=== PATIENT | female | born 1985 | race Caucasian/White ===

== ENCOUNTER 2018-12-06 13:55 | Outpatient (CLI) | payer MEDICAID ==
[~2018-12-06] VITALS: Ht 154.9 cm; Wt 76.1 kg
[~2018-12-06 13:55] MED LIST: PREN1TAB62 PO
[2018-12-06 14:17] VITALS: BP 124/60; PULSE 93; RESP 20; Ht 154.9 cm; Wt 76.1 kg
--- NOTE | 2019-01-09 14:24 | PN ---
Triage Information Date/Time Reason for visit: Uterine contractions Weeks of Gestation 37 weeks /Para Diabetes: none Hypertention: none Objective Heart Rate: 140's Results/Medications Imaging Results FINDINGS: There is a single live intrauterine gestation. Cardiac activity is present with 124 beats per minute. There is a vertex presentation. The placenta is anterior. There is no evidence of placental abruption. There is a normal amount of amniotic fluid with an BHAVYA = 12.5 cm. Biophysical profile: movement 2/2 tone 2/2. breathing 2/2 BHAVYA 2/2 Total 05/19 RPTAT: AA . IMPRESSION: Normal biophysical profile. . Disposition: Discharge Assessment/Plan 33 years old with single intrauterine at 37 weeks complaining of uterine contractions. She states good movement. She denies nausea, vomiting, shortness of breath, chest pain, headache, visual changes, vaginal bleeding or LOF. Her exam was unremarkable.SVE 1/thick/high/cephalic/intact membrane. Repeat exam in 2 hours with no cervical changes. Ultrasound performed as noted above -FHR: No sign of metabolic acidosis- Category I -Symptoms and sign of labor, preeclampsia, kick count discussed with patient, she voiced understanding. All of her questions answered. -Patient was discharged home in stable condition with the appropriate discharge instructions provided. I would like patient to have close follow-up with her primary physician or outpatient clinic in 1-2 days or return to triage for worsening symptoms or any other urgent concerns. AIYANA MOE Jan 09, 2019 14:24
== END 2018-12-06 18:30 | disposition home or self-care (01) ==
LOC: L-D 13:55 → OBT 13:55
PROVIDERS: ATTEND Obstetrics & Gynecology
DX: O62.9 Abnormality of forces of labor, unspecified (principal); Z3A.37 37 weeks gestation of pregnancy
CPT/HCPCS: 76818; 81003; Z7500; G0463

== ENCOUNTER 2018-12-25 12:02 | Inpatient (IN) | payer MEDICAID ==
[~2018-12-25] VITALS: Ht 160 cm; Wt 76.7 kg
[2018-12-25 12:11] VITALS: Ht 160 cm; Wt 76.7 kg
[2018-12-25 12:12] VITALS: BP 119/71; PULSE 82; RESP 18
--- NOTE | 2018-12-25 14:46 | HP ---
Date/Time of Note Date/Time of Note DATE: 12/25/18 TIME: 14:38 OB - History Hx of Present Free Text/Dictation 12/25/2018 Estimated Due Date: Dec 25, 2018 : 6 Para: 3 Spontaneous : 2 Care: Good Care Other Concerns: 33 years old female with care with Dr. Cartagena at [facility] presented for NST/ BPP due to post date. She was about 3 cm dilated in the office, per patient. Patient denies any LOf, vaginal bleeding, decreased movement. Desires to undergo labor augmentation. Past Family/Social History * Past Medical, Surgical, Family and Obstetric Histories reviewed from chart. Blood Type: O+ Rubella: immune RPR/VDRL: Negative GBS Status: Negative HBsAG: Negative OB Admission Exam Vital Signs Vital Signs Vital Signs Date Temp Pulse Resp B/P (MAP) Pulse Ox O2 O2 Flow FiO2 Time Delivery Rate 12/25/18 98.4 82 18 119/71 Room Air 12:12 (87) Physical Exam HEENT: WNL Lungs: Clear Abdomen: WNL Reflexes: Normal Cervical Dilatation: 2cm Effacement: 50% Station: -1 Membranes: Intact Accelerations: Accelerations Present Varibility: Moderate Intensity: Mild OB Assessment/Plan Other Assessment: IUP at 40 weeks Post date Desires to be induced after discussion about the risks and benefits of expectant management with testing twice a week until 40 weeks and 6 days GBS negative Admit to L&D for induction anticipate WOODY MUNGUIA MD Dec 25, 2018 14:46
[2018-12-25] MEDS: LACTATED RINGER'S 1,000 ML IV SCH ×2 (14:51→22:12)
[2018-12-25] MEDS ORDERED: CARBOPROST 250 MCG INJ IM PRN (15:00)
[2018-12-25] MEDS ORDERED: LIDOCAINE 1% (MPF) 30 ML INJ INJ PRN (15:00)
[2018-12-25] MEDS ORDERED: MISOPROSTOL 200 MCG TAB PR PRN (15:00)
[2018-12-25] MEDS ORDERED: OXYTOCIN 30 UNITS/LR 500 ML IV SCH ×3 (15:00)
[2018-12-25] MEDS ORDERED: OXYTOCIN 30 UNITS/LR 500 ML IV PRN (15:00)
[2018-12-25] MEDS ORDERED: METHYLERGONOVINE 0.2 MG INJ IM PRN (15:00)
[2018-12-26] VITALS (7 sets, daily range): BP systolic 103–123; BP diastolic 51–68; PULSE 69–78; RESP 16–19
--- NOTE | 2018-12-26 00:13 | QN ---
Documentation Comment 33-year-old with single intrauterine at 40 weeks admitted in labor. She states good movement. She denies nausea, vomiting, shortness of breath, chest pain, headache, visual changes, vaginal bleeding or LOF. Physical exam: Afebrile, vital signs stable heart rate category 1 Uterine contraction every 3-5 minutes SVE: 3/80/-2/cephalic/AROM done, clear Blood type O+/rubella immune/GBS negative Admission, procedures, expectations, risks and possible complications have been discussed in detail with the patient. Risk of vaginal delivery including but not limited to bleeding, infection, cervical laceration, placental retention, injury to fetus, blood transfusion, blood transfusion related infection, risk of anesthesia, adhesion, cervical laceration, episiotomy/laceration, possible delivery with risk of bleeding, infection, injury to other organs (bowel, bladder, ureter, vessels, nerves), injury to fetus, blood transfusion, blood transfusion related infection, risk of anesthesia, scar and hernia formation, needs for future , removal of uterus or any other indicated surgery discussed with the patient. She expressed understanding and repeats the risks. All of her questions were answered. She signed the informed consent. PHYSICIAN'S VERIFICATION OF INFORMED CONSENT The patient and her counseled regarding the procedure, its indications, risks, potential complications and alternatives and any questions were answered. Consent was obtained. PLANNED PROCEDURE/TREATMENT: Vaginal delivery, episiotomy, repair of laceration possible delivery AIYANA MOE Dec 26, 2018 00:13
--- NOTE | 2018-12-26 00:15 | LDN ---
Date/Time of Note Date/Time of Note DATE: 12/26/18 TIME: 00:13 Delivery Summary 33-year-old with single intrauterine at 40 weeks delivered a viable female over intact perineum. Nose and mouth suctioned. Rest of body delivered. Cord clamped and cut after stopping pulsation. Baby given to the nurse. Placenta delivered intact and spontaneously with three-vessel cord. Patient tolerated procedure well. Time of delivery 23:39 Weight 7 pounds 9 ounces 8 at 1 minutes and 9 at 5 minutes EBL 150 mL Weeks of Gestation 40 weeks Placenta Delivered: Spontaneously Meconium: none Episiotomy: No Estimated blood loss: 150 Sponge & Needle done & correct: Yes All needle counts correct: Yes Any foreign bodies felt in the: No Delivery Information Sex Infant Sex: female Apgars 1 Minute: 8 5 Minute: 9 10 Minute: 10 Suctioning Nose & mouth suctioned at rachel: Yes Umbilical Cord Umbilical cord with: 3 Vessels Cord presentations: no nuchal cord Cord Blood was obtained: Yes Mother & Baby Disposition Disposition Mom & Baby to Maternity; Good: Yes AIYANA MOE Dec 26, 2018 00:15
[2018-12-26] MEDS ORDERED: LACTATED RINGER'S 1,000 ML IV* SCH (02:16)
[2018-12-26] MEDS ORDERED: DEXTROSE 5%-LR 1,000 ML IV SCH (02:16)
[2018-12-26] MEDS ORDERED: DIBUCAINE 1% 30 GM OINT TOP PRN (02:30)
[2018-12-26] MEDS ORDERED: WITCH HAZEL/GLYCERIN PAD PR PRN (02:30)
[2018-12-26] MEDS ORDERED: LANOLIN HPA 1 PKT TOP PRN (02:30)
[2018-12-26] MEDS ORDERED: MISOPROSTOL 200 MCG TAB PR PRN (02:30)
[2018-12-26] MEDS ORDERED: METHYLERGONOVINE 0.2 MG INJ IM PRN (02:30)
[2018-12-26] MEDS ORDERED: OXYTOCIN 30 UNITS/LR 500 ML IV PRN (02:30)
[2018-12-26] MEDS ORDERED: ONDANSETRON 4 MG INJ IV PRN (02:30)
[2018-12-26] MEDS ORDERED: ACETAMINOPHEN 325 MG TAB PO PRN (02:30)
[2018-12-26] MEDS ORDERED: DIPHENHYDRAMINE 50 MG INJ IV PRN (02:30)
[2018-12-26] MEDS ORDERED: BENZOCAINE 20% 56 ML SPRAY TOP PRN (02:30)
[2018-12-26] MEDS ORDERED: SENNA/DOCUSATE NA (8.6MG/50MG) TAB PO PRN (02:30)
[2018-12-26] MEDS ORDERED: OXYCODONE/ASPIRIN (4.88/325) TAB PO PRN (02:30)
[2018-12-26] MEDS ORDERED: ZOLPIDEM 5 MG TAB PO PRN (02:30)
[2018-12-26] MEDS ORDERED: CARBOPROST 250 MCG INJ IM PRN (02:30)
[2018-12-26] MEDS: IBUPROFEN 600 MG TAB PO SCH ×3 (06:02→17:55)
--- NOTE | 2018-12-26 12:32 | PN ---
Date/Time of Note Date/Time of Note DATE: 12/26/18 TIME: 12:30 OB Subjective Subjective Subjective PPD# 1 Patient is doing well. She denies nausea, vomiting, shortness of breath, chest pain, headache. She has been ambulating without difficulty, tolerating regular diet. Pain is well controlled on current medications OB Objective Objective Objective Vital Signs Date Temp Pulse Resp B/P (MAP) Pulse Ox O2 O2 Flow FiO2 Time Delivery Rate 12/26/18 99.1 70 16 107/59 Room Air 08:00 (75) General: AAO X 3, comfortable, NAD, appropriate mood and affect. ABD: +BS. Soft, non-tender. Uterus 2 cm below umbilicus Flank: No CVA tenderness (B/L) LE: Mild edema. No clubbing, cyanosis, thigh or calf tenderness (B/L). Homans 'sign is negative Laboratory Tests Test 12/25/18 14:40 12/25/18 15:17 White Blood Count 9.6 10^3/ul Red Blood Count 4.47 10^6/ul Hemoglobin 12.8 g/dl Hematocrit 38.9 % Mean Corpuscular Volume 87.0 fl Mean Corpuscular Hemoglobin 28.6 pg Mean Corpuscular Hemoglobin Concent 32.9 g/dl Red Cell Distribution Width 14.4 % Platelet Count 194 10^3/UL Mean Platelet Volume 11.8 fl Immature Granulocytes % 0.300 % Neutrophils % 73.1 % Lymphocytes % 19.0 % Monocytes % 6.3 % Eosinophils % 1.0 % Basophils % 0.3 % Nucleated Red Blood Cells % 0.0 /100WBC Immature Granulocytes # 0.030 10^3/ul Neutrophils # 7.0 10^3/ul Lymphocytes # 1.8 10^3/ul Monocytes # 0.6 10^3/ul Eosinophils # 0.1 10^3/ul Basophils # 0.0 10^3/ul Nucleated Red Blood Cells # 0.0 10^3/ul Prothrombin Time 11.5 Sec Prothrombin Time Ratio 0.9 INR International Normalized Ratio 0.83 Activated Partial Thromboplast Time 25.9 Sec OB Assessment/Plan Other plan: 33-year-old s/p normal vaginal delivery. PPD#1 - AF, VSS - Baby is doing well, at bed side. She is bonding well - Contraception methods with R/B/A/FR discussed - Continue care - Discharge home tomorrow - Rx and instruction given - Follow up in 2 and 6 weeks at clinic AIYANA MOE Dec 26, 2018 12:32
--- NOTE | 2018-12-26 12:33 | DS ---
Date/Time of Note Date/Time of Note DATE: 12/26/18 TIME: 12:32 Obstetrical Discharge Record Final Diagnosis Final Diagnosis: Term delivered Other Final Diagnosis 33-year-old s/p normal vaginal delivery. PPD#1. course was unremarkable. She is ambulating and tolerating regular diet. She is voiding without difficulty. Pain is controlled on current medication. - AF, VSS - Baby is doing well, at bed side. She is bonding well - Contraception methods with R/B/A/FR discussed - Continue care - Discharge home tomorrow - Rx and instruction given - Follow up in 2 and 6 weeks at clinic Vaginal Delivery Obstetrical Delivery: Spontaneous Condition on Discharge Physical Assessment Last Vitals: Vital Signs Date Temp Pulse Resp B/P (MAP) Pulse Ox O2 O2 Flow FiO2 Time Delivery Rate 12/26/18 99.1 70 16 107/59 Room Air 08:00 (75) Voiding: Yes Bowel Movement: Yes Breast: Soft, non-tender Fundus: Firm Calf Tenderness: No Patient Condition: Stable AIYANA MOE Dec 26, 2018 12:33
[2018-12-27 04:05] VITALS: BP 106/51; PULSE 70; RESP 18
[2018-12-27] MEDS: IBUPROFEN 600 MG TAB PO SCH ×3 (05:31→11:40)
[2018-12-27 08:00] VITALS: BP 106/54; PULSE 75; RESP 20
[2018-12-27] MEDS ORDERED: DIPHTH/TET/ACEL PERTUSS (ADULT) 0.5 ML VIAL IM* ONE (12:30)
[2018-12-28] MEDS ORDERED: DIPHTH/TET/ACEL PERTUSS (ADULT) 0.5 ML VIAL IM* ONE (09:00)
[2018-12-28] MEDS ORDERED: MEASLES,MUMPS,RUBELLA VACCINE INJ SC* ONE (09:00)
--- NOTE | 2019-01-03 11:23 | DELSUM ---
Delivery Summary A-C Datetime Report Generated by CPN: 01/03/2019 11:20 DELIVERY PERSONNEL Transportation Engineering Technician: Mosqueda, Char MATERNAL INFORMATION Delivery Anesthesia: None Medications in Delivery: pitocin Delivery QBL (ml): 150 Placenta Cultured: No Maternal Complications: None LABOR SUMMARY EDC: 12/25/2018 00:00 No. Babies in Womb: 1 Attempted: No Labor Anesthesia: None LABOR INFORMATION Reason for Induction: Postterm Onset of Labor: 12/25/2018 15:04 Complete Dilatation: 12/25/2018 23:36 Cervical Ripening Agents: Other Other Ripening Agents: N/A Oxytocin: Induction Group B Beta Strep: Negative Steroids Given: None Reason Steroids Not Administered: Not Applicable MEMBRANES Membranes Rupture Method: Artificial Rupture of Membranes: 12/25/2018 21:42 Length of Rupture (hr): 1.95 Amniotic Fluid Color: Clear Amniotic Fluid Amount: Small STAGES OF LABOR Stage 1 hr: 8 Stage 1 min: 32 Stage 2 hr: 0 Stage 2 min: 3 Stage 3 hr: 0 Stage 3 min: 4 Total Time in Labor hr: 8 Total Time in Labor min: 39 VAGINAL DELIVERY Episiotomy: None Laceration Extension: N/A Laceration Type: None Laceration Repair: Not Applicable Initial Vag Sponge Count: 10 Final Vag Sponge Count: 10 Initial Vag Sharps Count: 1 Final Vag Sharps Count: 1 Sponge Count Correct: Yes Sharps Count Correct: Yes BABY A INFORMATION Infant Delivery Date/Time: 12/25/2018 23:39 Method of Delivery: Vaginal Born in Route : No : N/A Forceps: N/A Vacuum Extraction: N/A Shoulder Dystocia : N/A SHOULDER DYSTOCIA BABY A Delivery Date/Time: 12/25/2018 23:39 PRESENTATION/POSITION BABY A Presentation: Cephalic Cephalic Presentation: Vertex Vertex Position: Left Occipital Anterior Breech Presentation: N/A PLACENTA INFORMATION BABY A Placenta Delivery Time : 12/25/2018 23:43 Placenta Method of Delivery: Expressed Placenta Status: Delivered SCORES BABY A Heart Rate 1 min: >100 bpm Resp Effort 1 min: Good Cry Reflex Irritability 1 min: Cough/Sneeze/Pulls Away Muscle Tone 1 min: Active Motion Color 1 min: Blue/Pale Resuscitation Effort 1 min: Tactile Stimulation SCORE 1 MIN: 8 Heart Rate 5 min: >100 bpm Resp Effort 5 min: Good Cry Reflex Irritability 5 min: Cough/Sneeze/Pulls Away Muscle Tone 5 min: Active Motion Color 5 min: Body [place], Extremit Blue Resuscitation Effort 5 min: N/A SCORE 5 MIN: 9 INFANT INFORMATION BABY A Gestational Age at Delivery: 40.0 Gestational Status: Full Term- 39- 40.6 Weeks Outcome : Liveborn Condition : Stable Sex: Female IDENTIFICATION/MEDS BABY A ID Band Number: [id number] ID Band Location: Right Leg; Left Arm Sensor Applied: Yes Sensor Number: [id number] Sensor Location : Cord Clamp Vitamin K Given : Not Given Erythromycin Given: Not Given WEIGHT/LENGTH BABY A Birthweight (gm): 3430 Infant Weight (lb): 7 Infant Weight (oz): 9 Length (in): 19.00 Infant Length (cm): 48.26 CORD INFORMATION BABY A No. Cord Vessels: 3 Nuchal Cord : N/A Cord Blood Taken: Yes Suction: Mouth; Nose ASSESSMENT BABY A Infant Complications: None Physical Findings at Delivery: Within Normal Limits Infant Respirations: Appears Normal Cloud Operations Engineer/ALS Called : No Infant Care By: WILIAN Transferred To: Remains with Mother
== END 2018-12-27 13:30 | disposition home or self-care (01) | DRG 807 ==
LOC: OBT 12:02 → L-D 12:02 → OBT 14:00 → L-D 14:00 → PP1 12-26 01:41
PROVIDERS: ADMIT Obstetrics & Gynecology; ATTEND Obstetrics & Gynecology
PROC: 4A1HXCZ Monitoring of Products of Conception, Cardiac Rate, External Approach (ICD-10-PCS; 2018-12-25)
PROC: 10907ZC Drainage of Amniotic Fluid, Therapeutic from Products of Conception, Via Natural or Artificial Opening (ICD-10-PCS; 2018-12-25)
PROC: 10E0XZZ Delivery of Products of Conception, External Approach (ICD-10-PCS; principal; 2018-12-26)
PROC: 3E0234Z Introduction of Serum, Toxoid and Vaccine into Muscle, Percutaneous Approach (ICD-10-PCS; 2018-12-27)
DX: O80 Encounter for full-term uncomplicated delivery (principal); Z37.0 Single live birth; Z3A.40 40 weeks gestation of pregnancy; Z23 Encounter for immunization
CPT/HCPCS: 76815; 76818; 85025; 85610; 85730; 86592; 86850; 86900; 86901; 90715; G0463; J2590; J7120; J7121